=== PATIENT | female | born 1935 | race Caucasian/White ===

== ENCOUNTER → 2018-06-22 | Outpatient (CLI) | payer MEDICARE, BC ==
[~2018-06-22] MED LIST: CELEXA10 MG PO; HYZAAR; HYZAAR 50-12.1 UDTAB PO; ZOLOFT 50MG50 MG PO
== END ==
LOC: COL.RAD 11:23
DX: K76.89 Other specified diseases of liver (principal); M41.86 Other forms of scoliosis, lumbar region; M46.96 Unspecified inflammatory spondylopathy, lumbar region; M51.36 Other intervertebral disc degeneration, lumbar region; D25.9 Leiomyoma of uterus, unspecified; R31.9 Hematuria, unspecified
CPT/HCPCS: Q9967

== ENCOUNTER 2018-07-06 06:24 | Observation (INO) | payer MEDICARE, BC ==
[2018-07-06] VITALS (11 sets, daily range): BP systolic 111–133; BP diastolic 64–82; PULSE 58–80; TEMP 97.9–98.1
[~2018-07-06] VITALS: Ht 170.2 cm; Wt 67.9 kg
[2018-07-07 04:13] VITALS: BP 103/53; PULSE 62; TEMP 98.3
[2018-07-07 08:56] VITALS: BP 111/71; PULSE 62; TEMP 97.9
[2018-07-07] MEDS ORDERED: CIPRO 500MG TA500 MG PO (11:46)
[2018-07-07] MEDS ORDERED: PYRIDIUM 100MG100 MG (11:47)
[2018-07-07 11:54] VITALS: BP 113/63; PULSE 68; TEMP 97.4
== END 2018-07-07 13:00 | disposition home or self-care (01) ==
LOC: SDCO 06:24 → SURG 09:49 → SDCO 11:08 → SURG 11:09
DX: C67.4 Malignant neoplasm of posterior wall of bladder (principal); C67.2 Malignant neoplasm of lateral wall of bladder; J30.9 Allergic rhinitis, unspecified; E06.9 Thyroiditis, unspecified; F43.10 Post-traumatic stress disorder, unspecified; M19.90 Unspecified osteoarthritis, unspecified site; I10 Essential (primary) hypertension; E78.5 Hyperlipidemia, unspecified; F32.9 Major depressive disorder, single episode, unspecified; K21.9 Gastro-esophageal reflux disease without esophagitis; E03.9 Hypothyroidism, unspecified; Z85.828 Personal history of other malignant neoplasm of skin; Z85.820 Personal history of malignant melanoma of skin; Z88.0 Allergy status to penicillin; Z88.2 Allergy status to sulfonamides; Z87.891 Personal history of nicotine dependence; Z80.0 Family history of malignant neoplasm of digestive organs; Z80.8 Family history of malignant neoplasm of other organs or systems
CPT/HCPCS: G0378; G0379; J0690; J1100; J2270; J2405; J2704; J3010; J7120; Q9967

== ENCOUNTER → 2018-08-03 | Outpatient (CLI) | payer MEDICARE, BC ==
[~2018-08-03] MED LIST changes: +CIPRO 500MG TA500 MG PO; +PYRIDIUM 100MG100 MG
== END ==
LOC: COL.RAD 10:45
DX: C67.4 Malignant neoplasm of posterior wall of bladder (principal); K44.9 Diaphragmatic hernia without obstruction or gangrene; Z95.828 Presence of other vascular implants and grafts
CPT/HCPCS: Q9967

== ENCOUNTER 2018-10-01 09:40 | Outpatient (RCR) | payer MEDICARE, BC ==
[~2018-10-01] VITALS: Ht 170.2 cm; Wt 68.2 kg
[2018-10-01] VITALS (12 sets, daily range): BP systolic 112–131; BP diastolic 57–82; PULSE 62–76; TEMP 97.7–98
--- NOTE | 2018-10-01 16:50 | NUR ---
Blood transfusion complete. PAC flushed with Ns 10 ml and Heparin 300 units and de-assessed.
== END 2018-10-01 16:45 | disposition home or self-care (01) ==
LOC: EUO 09:40
DX: C67.4 Malignant neoplasm of posterior wall of bladder (principal)
CPT/HCPCS: J1644; J7050; P9016

== ENCOUNTER 2018-10-29 10:02 | Outpatient (RCR) | payer MEDICARE, BC ==
[2018-10-29] VITALS (9 sets, daily range): BP systolic 108–153; BP diastolic 71–99; PULSE 54–81; TEMP 98–98.1
== END 2018-10-29 15:52 | disposition home or self-care (01) ==
LOC: EUO 10:02
DX: C67.9 Malignant neoplasm of bladder, unspecified (principal)
CPT/HCPCS: J7050; P9016

== ENCOUNTER → 2019-02-22 | Outpatient (CLI) | payer MEDICARE, BC | LOC: COL.VAS 15:30 | DX: Z13.6 Encounter for screening for cardiovascular disorders (principal); M79.89 Other specified soft tissue disorders ==

== ENCOUNTER → 2019-03-26 | Outpatient (CLI) | payer MEDICARE, BC | LOC: COL.VAS 13:12 | DX: M79.89 Other specified soft tissue disorders (principal); M79.662 Pain in left lower leg ==

== ENCOUNTER → 2019-07-24 | Outpatient (CLI) | payer MEDICARE, BC | LOC: COL.RAD 09:46 | DX: Z01.812 Encounter for preprocedural laboratory examination (principal); C67.4 Malignant neoplasm of posterior wall of bladder; Z90.6 Acquired absence of other parts of urinary tract; Z90.710 Acquired absence of both cervix and uterus; Z93.6 Other artificial openings of urinary tract status; R60.0 Localized edema; K76.9 Liver disease, unspecified; M47.816 Spondylosis without myelopathy or radiculopathy, lumbar region; M41.86 Other forms of scoliosis, lumbar region | CPT/HCPCS: Q9967 ==

== ENCOUNTER 2019-08-07 10:15 | Outpatient (RCR) | payer MEDICARE, BC | END 2019-08-13 | disposition still patient (30) | LOC: MKS.ESL.PT | DX: I89.0 Lymphedema, not elsewhere classified (principal) ==

== ENCOUNTER → 2020-02-19 | Outpatient (CLI) | payer MEDICARE, BC | LOC: MC.RAD 13:58 | DX: Z12.31 Encounter for screening mammogram for malignant neoplasm of breast (principal) ==

== ENCOUNTER 2020-04-01 22:00 | Emergency (ER) | payer MEDICARE, BC ==
[~2020-04-01] VITALS: Ht 170.2 cm; Wt 68.2 kg
[2020-04-01 23:01] LABS: BASO # 0.1 (0.0-0.2); BASO % 0.6 % (0.0-2.0); EOS # 0.2 (0.0-0.7); EOS % 1.8 % (0-4.0); GRAN # 4.6 (1.4-6.5); GRAN % 54.6 % (42.2-75.2); HEMOGLOBIN 11.9 g/dl (12.5-16.0); LYMPH % 35.1 % (20.0-51.0); MEAN CELL VOLUME 96 fl (80.0-100.0); MEAN CORPUSCULAR HEMOGLOBIN 31 pg (27.0-31.0); MEAN CORPUSCULAR HGB CONC 32 g/dl (33.0-37.0); MEAN PLATELET VOLUME 10.3 fl (7.4-10.4); MONO # 0.7 (0.1-0.6); MONO % 7.7 % (1.7-9.3); PLATELET COUNT 180 K/mm3 (130-400); RED BLOOD COUNT 3.84 M/mm3 (4.10-5.30); REDCELL DISTRIBUTION WIDTH-CV 13.8 % (11.5-14.5)
[2020-04-01 23:04] LABS: HEMATOCRIT 36.7 % (37.0-47.0)
[2020-04-01 23:10] LABS: ALANINE AMINOTRANSFERASE 13 U/L (4-34); ALBUMIN 4.2 gm/dL (3.5-5.0); ALKALINE PHOSPHATASE 84 U/L (50-136); ANION GAP 7 mmol/L (7-16); AST,SGOT 28 U/L (15-37); BILIRUBIN,TOTAL 0.4 mg/dL (0.0-1.0); BLOOD UREA NITROGEN 35 mg/dL (7-17); CALCIUM 9.7 mg/dL (8.4-10.2); CARBON DIOXIDE 26 mmol/L (22-30); CHLORIDE 103 mmol/L (98-107); CREATININE, serum 1.42 (0.52-1.25); GLUCOSE 91 mg/dL (74-106); POTASSIUM 4.1 mmol/L (3.4-5.0); SODIUM 136 mmol/L (137-145); TOTAL PROTEIN 7.3 gm/dL (6.4-8.2)
[2020-04-01 23:12] LABS: C-REACTIVE PROTEIN 0.5 mg/dL (0.0-0.9)
[2020-04-01 23:25] LABS: TROPONIN-I < 0.012 ng/mL (0.000-0.035)
[2020-04-02 00:57] LABS: COLLECTION METHOD UROSTOMY
[2020-04-02 01:09] LABS: PH 8 (5-8); SQUAMOUS EPITHELIAL 0-2 /hpf; URINE APPEARANCE Cloudy; URINE BACTERIA None Seen /hpf; URINE BILIRUBIN Negative (NEGATIVE); URINE BLOOD 1+ (NEGATIVE); URINE COLOR Yellow; URINE GLUCOSE Negative (NEGATIVE); URINE KETONE Negative (NEGATIVE); URINE LEUKOCYTE ESTERASE 1+ (NEGATIVE); URINE NITRATE Negative (NEGATIVE); URINE PROTEIN(semi-quant) Negative (NEGATIVE); URINE RBC 0-2 /hpf; URINE UROBILINOGEN Negative (NEGATIVE)
[2020-04-02] MEDS ORDERED: OMNICEF 300MG300 MG PO (02:28)
[2020-04-02 02:37] VITALS: BP 142/82; PULSE 67; TEMP 98
== END 2020-04-02 02:37 | disposition home or self-care (01) ==
LOC: COL.ER 22:00
PROVIDERS: Emergency Medicine
DX: R06.02 Shortness of breath (principal); I10 Essential (primary) hypertension; F32.9 Major depressive disorder, single episode, unspecified; Z90.710 Acquired absence of both cervix and uterus
CPT/HCPCS: J7040; Q9967

== ENCOUNTER 2020-05-20 09:30 | Day surgery (SDC) | payer MEDICARE, BC ==
[~2020-05-20] VITALS: Ht 170.2 cm; Wt 70.9 kg
[2020-05-20] VITALS (9 sets, daily range): BP systolic 101–160; BP diastolic 60–90; PULSE 54–80
[~2020-05-20 09:30] MED LIST changes: +OMNICEF 300MG300 MG PO
[2020-05-20] MEDS ORDERED: TOPROL XL 50MG50 MG PO (11:18)
[2020-05-20] MEDS ORDERED: VITAMIN D31000 I1 PO (11:19)
[2020-05-20 11:24] LABS: HEMATOCRIT 37.6 % (37.0-47.0); HEMOGLOBIN 11.9 g/dl (12.5-16.0); MEAN CELL VOLUME 96 fl (80.0-100.0); MEAN CORPUSCULAR HEMOGLOBIN 30 pg (27.0-31.0); MEAN CORPUSCULAR HGB CONC 32 g/dl (33.0-37.0); MEAN PLATELET VOLUME 10.4 fl (7.4-10.4); PLATELET COUNT 158 K/mm3 (130-400); RED BLOOD COUNT 3.93 M/mm3 (4.10-5.30); REDCELL DISTRIBUTION WIDTH-CV 13.3 % (11.5-14.5)
[2020-05-20 11:34] LABS: PROTHROMBIN TIME 11.1 SECONDS (9.7-12.8)
[2020-05-20 11:48] LABS: CALCIUM 9.5 mg/dL (8.4-10.2); CREATININE, serum 1.42 (0.52-1.25)
--- NOTE | 2020-05-20 11:56 | NUR ---
SEE MERGE DOCUMENTATION FOR MEDICATION ADMINISTRATION TIMES AND INTRA/POST PROCEDURE SEDATION ASSESSMENTS. RIGHT HAND BARBEAU TEST POSITIVE.
--- NOTE | 2020-05-20 12:49 | NUR ---
PT IS BACK FROM ELECTRICAL TROU[facility]HO[facility], SHE IS AWAKE AND ALERT, IN GOOD SPIRITS. TR BAND IN PLACE, 15 CC AIR IN BAND. CMS INTACT DISTAL. LUNCH ORDERED, TELEMETRY IN PLACE, ST ON MONITOR 78.
--- NOTE | 2020-05-20 16:02 | NUR ---
Pt is ready for discharge. She has recovered well, TR band has been deflated and site is dressed with bandaid, 2x2 and coban. cms intact distal, there has been no bleeding or hematoma. Pt has verbalized understanding of dc/fu and rx instructions. iv was dc'd with cath intact. pt has been up and ambulatory with steady gait. pt to exit via wheelchair.
== END 2020-05-20 16:23 | disposition home or self-care (01) ==
LOC: COL.CAR
PROVIDERS: Internal Medicine Cardiovascular Disease
DX: R06.02 Shortness of breath (principal); R94.39 Abnormal result of other cardiovascular function study; I20.0 Unstable angina; Z85.51 Personal history of malignant neoplasm of bladder; Z92.3 Personal history of irradiation; I47.2 Ventricular tachycardia; I15.0 Renovascular hypertension; N18.3 Chronic kidney disease, stage 3 (moderate); Z88.0 Allergy status to penicillin; Z88.2 Allergy status to sulfonamides
CPT/HCPCS: J1644; J2250; J3010; Q9967

== ENCOUNTER → 2020-10-07 | Outpatient (CLI) | payer MEDICARE, BC ==
[2020-10-07] VITALS (19 sets, daily range): BP systolic 114–160; BP diastolic 62–93; PULSE 51–82; TEMP 97.2
[~2020-10-07] MED LIST changes: +TOPROL XL 50MG50 MG PO; +VITAMIN D31000 I1 PO
== END ==
LOC: COL.RAD 09:24
DX: C67.9 Malignant neoplasm of bladder, unspecified (principal); R91.1 Solitary pulmonary nodule

== ENCOUNTER 2021-12-12 17:59 | Inpatient (IN) | payer MEDICARE, BC ==
[~2021-12-12] VITALS: Ht 167.6 cm; Wt 67.1 kg
[2021-12-12 18:47] LABS: BASO % 0.3 % (0.0-2.0); EOS % 0.3 % (0.0-4.0); GRAN # 10.3 K/mm3 (1.4-6.5); GRAN % 88.5 % (42.2-75.2); HEMATOCRIT 37.5 % (37.0-47.0); HEMOGLOBIN 12.3 g/dl (12.5-16.0); LYMPH # 0.5 K/mm3 (1.2-3.4); LYMPH % 4.6 % (20.0-51.0); MEAN CELL VOLUME 92 fl (80.0-100.0); MEAN CORPUSCULAR HEMOGLOBIN 30 pg (27-31); MEAN CORPUSCULAR HGB CONC 33 g/dl (33.0-37.0); MEAN PLATELET VOLUME 10.4 fl (7.4-10.4); MONO # 0.7 K/mm3 (0.1-0.6); PLATELET COUNT 201 K/mm3 (130-400); RED BLOOD COUNT 4.09 M/mm3 (4.10-5.30); REDCELL DISTRIBUTION WIDTH-CV 13.7 % (11.5-14.5)
[2021-12-12 19:04] LABS: ALANINE AMINOTRANSFERASE 151 U/L (0-55); ALBUMIN 3.8 gm/dL (3.4-4.8); ALKALINE PHOSPHATASE 560 U/L (40-150); ANION GAP 15 mmol/L (7-16); AST,SGOT 173 U/L (5-34); BILIRUBIN,TOTAL 2.1 mg/dL (0.2-1.2); BLOOD UREA NITROGEN 23 mg/dL (10-20); CARBON DIOXIDE 23 mmol/L (23-31); CHLORIDE 102 mmol/L (98-107); CREATININE, serum 1.69 mg/dL (0.57-1.11); GLUCOSE 120 mg/dL (70-99); LIPASE 48 U/L (8-78); POTASSIUM 3.8 mmol/L (3.5-4.5); SODIUM 140 mmol/L (136-145); TOTAL PROTEIN 7.4 gm/dL (6.2-8.1)
[2021-12-12 19:10] LABS: TROPONIN-I < 0.010 ng/mL (0.00-0.033)
--- NOTE | 2021-12-12 23:00 | NUR ---
PT recently arrived to the floor from ED. She is alert and oriented with no pain complaints at this time. She also has no complaints of feeling nauseated. Pt requested something to drink. Gave her some water, but informed her that she cannot have anything to eat or drink after midnight. Pt does have dentures, gave her denture cup. Pt wishes to keep them in at this time. Pt does have urostomy with pouch. Hooked up dependent drainage bag. IV fluids started. Oriented pt to her room and educated her on the plan of care. Pt verbalized understanding. All questions answered. PT does have call light
[2021-12-12 23:01] VITALS: BP 122/88; PULSE 92; TEMP 99
[2021-12-12] MEDS ORDERED: ZOLOFT 25MG25 MG PO (23:09)
[2021-12-13 04:37] VITALS: BP 120/50; PULSE 92; TEMP 98.1
[2021-12-13 06:37] LABS: BASO % 0.3 % (0.0-2.0); EOS % 0.1 % (0.0-4.0); GRAN # 7.4 K/mm3 (1.4-6.5); HEMOGLOBIN 11.1 g/dl (12.5-16.0); LYMPH # 0.6 K/mm3 (1.2-3.4); LYMPH % 6.9 % (20.0-51.0); MEAN CELL VOLUME 92 fl (80.0-100.0); MEAN CORPUSCULAR HEMOGLOBIN 30 pg (27-31); MEAN CORPUSCULAR HGB CONC 33 g/dl (33.0-37.0); MEAN PLATELET VOLUME 10.8 fl (7.4-10.4); MONO % 11.2 % (1.7-9.3); PLATELET COUNT 180 K/mm3 (130-400); RED BLOOD COUNT 3.67 M/mm3 (4.10-5.30); REDCELL DISTRIBUTION WIDTH-CV 13.8 % (11.5-14.5)
[2021-12-13 06:45] LABS: HEMATOCRIT 33.6 % (37.0-47.0)
[2021-12-13 07:09] LABS: ALBUMIN 3.2 gm/dL (3.4-4.8); BILIRUBIN,TOTAL 2.5 mg/dL (0.2-1.2); CALCIUM 8.8 mg/dL (8.4-10.2); CREATININE, serum 1.41 mg/dL (0.57-1.11); POTASSIUM 3.8 mmol/L (3.5-4.5); TOTAL PROTEIN 6.5 gm/dL (6.2-8.1)
[2021-12-13 08:09] VITALS: BP 97/51; PULSE 78; TEMP 98.6
--- NOTE | 2021-12-13 09:31 | NUR ---
Scheduled medications held due to NPO status. Shift assessment performed. Patient A&O. BP soft, but stable. All other VSS. Patient denies any pain, discomfort, SOA, or further needs at this time. Urostomy in place. No complications noted. Call light in reach.
[2021-12-13 11:58] VITALS: BP 107/58; PULSE 71; TEMP 98.2
--- NOTE | 2021-12-13 13:35 | NUR ---
forest worker met with patient to discuss discharge plan. Patient currently lives at home alone in [address]. She reports to being fully independent with her ADL's and does not utilize any DME to assist with mobility. Patient has no home oxygen needs. PCP is Dr. Na Moreland and she utilizes [facility] for medications. Patient reports that she has three daughters but that her daughter Keisha ([phone]) is her primary agent. Patient is planning on returning home once medically ready for discharge. Discharge plan: Home
--- NOTE | 2021-12-13 15:27 | NUR ---
Received report that patient is receiving keytruda (pembrolizumab) every three weeks, last dose 11/25, verified with oncology office. Call made to pharmacist to confirm precautions: ongoing use of double chemo gloves when handling urine and feces. Discussed with primary nurse and sign placed outside door.
[2021-12-13 16:33] VITALS: BP 106/56; PULSE 64; TEMP 98.1
[2021-12-13] MEDS ORDERED: KEYTRUDA25 MG/ML IV (17:38)
--- NOTE | 2021-12-13 18:12 | NUR ---
Patient has had an ok day. Currently on RA. Denies any pain, discomfort, SOA, or further needs at this time. VSS. Patient A&O. Chemo precautions in place for urine and stool. Call light in reach. Patient to be NPO at midnight for procedure tomorrow. Family at the bedside.
--- NOTE | 2021-12-13 18:23 | NUR ---
Consent signed and on the chart.
[2021-12-13 19:51] VITALS: BP 141/71; PULSE 77; TEMP 98.4
--- NOTE | 2021-12-13 20:30 | NUR ---
Initial shift assessment done- denies pain, denies nausea/vomiting- taking clear liquids without problems- will be NPO after MN, IV fluids of NS at 75cc/hr. Will call if needs assistance. Alert/oriented,
[2021-12-14] VITALS (13 sets, daily range): BP systolic 119–144; BP diastolic 50–94; PULSE 60–97; TEMP 97.6–99.5
--- NOTE | 2021-12-14 05:34 | NUR ---
States the abd pain and nausea is coming back-- medicated with morphine and Zofran IV , has been resting most of the night-- NPO
[2021-12-14 06:32] LABS: BASO % 0.6 % (0.0-2.0); EOS # 0.1 K/mm3 (0.0-0.7); EOS % 1.6 % (0.0-4.0); GRAN % 72.1 % (42.2-75.2); HEMATOCRIT 31.5 % (37.0-47.0); HEMOGLOBIN 10.1 g/dl (12.5-16.0); LYMPH % 14.9 % (20.0-51.0); MEAN CELL VOLUME 96 fl (80.0-100.0); MEAN CORPUSCULAR HEMOGLOBIN 31 pg (27-31); MEAN CORPUSCULAR HGB CONC 32 g/dl (33.0-37.0); MEAN PLATELET VOLUME 10.9 fl (7.4-10.4); MONO # 0.7 K/mm3 (0.1-0.6); MONO % 10.7 % (1.7-9.3); PLATELET COUNT 174 K/mm3 (130-400); RED BLOOD COUNT 3.29 M/mm3 (4.10-5.30)
[2021-12-14 06:49] LABS: ALBUMIN 2.9 gm/dL (3.4-4.8); BILIRUBIN,TOTAL 1.4 mg/dL (0.2-1.2); CALCIUM 8.7 mg/dL (8.4-10.2); CREATININE, serum 1.25 mg/dL (0.57-1.11); MAGNESIUM 1.7 mg/dL (1.6-2.6); POTASSIUM 3.6 mmol/L (3.5-4.5); TOTAL PROTEIN 5.8 gm/dL (6.2-8.1)
--- NOTE | 2021-12-14 07:54 | NUR ---
Scheduled medications held due to scheduled procedure. Shift assessment performed. VSS. Patient A&O. Urostomy in place hooked up to Dependant drainage. No kinks in tubing noted. No complications noted. Fluids running as ordered. Patient denies any pain, discomfort, SOA, or further needs at this time. Call light in reach. Patient NPO for procedure. Mouth swabs provided.
--- NOTE | 2021-12-14 10:22 | NUR ---
Initial visit; Patient states she is doing well and thanked Coat Presser for looking in on her and keeping her in her prayers.
--- NOTE | 2021-12-14 12:49 | NUR ---
Patient back from ERCP. Dynamap in use for post op vitals. VSS. Patient A&O. Pain minimal. Denies the need for pain medication at this time. Call light in reach. Family at the bedside.
--- NOTE | 2021-12-14 15:29 | NUR ---
PATIENT IN SHOWER
--- NOTE | 2021-12-14 18:02 | NUR ---
Patient has had an ok day. ERCP completed with no complications. Post op vitals completed. Patient to be NPO after midnight for a lap choley in the AM. Consent is signed and on the chart. PRN morphine and zofran given once this shift for sharp abd pain. Patient is currently resting in bed. Respirations even and unlabored. Fluids running as ordered. VSS. Patient A&O. Family at the bedside. Patient denies any pain, discomfort, SOA, or further needs at this time. call light in reach.
--- NOTE | 2021-12-14 20:30 | NUR ---
Initial shift assessment done- states having some abd pain 5/10-would like Morphine--given,, IV fluids of NS at 75cc/hr, states feels nauseated when just takes sips of water- will be NPO after MN for OR in the AM- so states will just not drink anymore tonight- SCD,s on, Teresa ALEXIS called about ?Lovenox dose tonight,whether to give or not-- states she will put it on hold. OR at 0730 in the morning-consent signed
[2021-12-15] VITALS (12 sets, daily range): BP systolic 106–134; BP diastolic 54–73; PULSE 71–92; TEMP 97.5–98.4
[2021-12-15 06:50] LABS: ALBUMIN 2.7 gm/dL (3.4-4.8); BILIRUBIN,TOTAL 3.2 mg/dL (0.2-1.2); CALCIUM 8.5 mg/dL (8.4-10.2); CREATININE, serum 1.24 mg/dL (0.57-1.11); MAGNESIUM 1.7 mg/dL (1.6-2.6); POTASSIUM 3.6 mmol/L (3.5-4.5); TOTAL PROTEIN 5.5 gm/dL (6.2-8.1)
--- NOTE | 2021-12-15 06:55 | NUR ---
Ready for OR- new gown on- VSS, urostomy bag to DD- emptied of 800cc urine. Dentures out- mouth care done. Pre-op checklist done. Or staff here to take pt down to OR.
--- NOTE | 2021-12-15 07:06 | NUR ---
PATIENT TAKEN DOWN BY GARY MARK FOR LAP CHOLEY
--- NOTE | 2021-12-15 09:39 | NUR ---
Patient back to room 358 following Lap Choely. Shift assessment performed. Patient has 4 lap sites that are covered with bandaide. Dressing is clean, dry, and intact. Patient denies any pain, discomfort, or N/V at this time. Urostomy in place. DD in use. Dynamap in use for post-op vitals. VSS. Patient A&O. Patient denies any further needs at this time. Call light in reach. Family at the bedside.
--- NOTE | 2021-12-15 10:03 | NUR ---
NO S/S OF PAIN OR DISCOMFORT AT THIS TIME.
--- NOTE | 2021-12-15 13:57 | NUR ---
PATIENT DENIES ANY PAIN OR DISCOMFORT AT THIS TIME.
--- NOTE | 2021-12-15 14:54 | NUR ---
Sanitation Laborer met with patient to review discharge plan. Patient states she is going home tomorrow, whether the doctor gives their blessing or not. SW discussed Home Health services with patient who advised she was not interested as she did not want to be home bound. SW also offered outpatient PT and patient states she does not want to do that. Patient reports she does a [employer] program at home. SW presented and reviewed IM form with patient who verbalized understanding and provided signature. SW placed form in chart. Patient declined copy. Patient's daughter, Maryellen is at bedside and will take patient home tomorrow.
--- NOTE | 2021-12-15 19:57 | NUR ---
Patient has had an ok day. Diet advanced with no s/s of N/V. Patient states that she has little to no pain. Lap dressing are clean, dry, and intact. Patient denies any further needs at this time. VSS. Patient A&O. Call light in reach. Family at the bedside.
[2021-12-16 00:44] VITALS: BP 103/49; PULSE 70; TEMP 97.3
[2021-12-16 04:43] VITALS: BP 107/50; PULSE 55; TEMP 98.1
[2021-12-16 06:27] LABS: BASO % 0.1 % (0.0-2.0); GRAN # 9.5 K/mm3 (1.4-6.5); LYMPH # 0.8 K/mm3 (1.2-3.4); LYMPH % 6.9 % (20.0-51.0); MEAN CELL VOLUME 95 fl (80.0-100.0); MEAN CORPUSCULAR HGB CONC 32 g/dl (33.0-37.0); MONO # 0.7 K/mm3 (0.1-0.6); MONO % 6.4 % (1.7-9.3); PLATELET COUNT 202 K/mm3 (130-400); RED BLOOD COUNT 3.24 M/mm3 (4.10-5.30); REDCELL DISTRIBUTION WIDTH-CV 13.8 % (11.5-14.5)
[2021-12-16 06:29] LABS: HEMATOCRIT 30.8 % (37.0-47.0); HEMOGLOBIN 9.7 g/dl (12.5-16.0); MEAN CORPUSCULAR HEMOGLOBIN 30 pg (27-31)
[2021-12-16 06:49] LABS: ALBUMIN 2.8 gm/dL (3.4-4.8); CALCIUM 8.9 mg/dL (8.4-10.2); CREATININE, serum 1.34 mg/dL (0.57-1.11); MAGNESIUM 1.8 mg/dL (1.6-2.6); TOTAL PROTEIN 5.9 gm/dL (6.2-8.1)
[2021-12-16 07:54] VITALS: BP 128/69; PULSE 72; TEMP 97.9
[2021-12-16] MEDS ORDERED: ZOFRAN ODT4 MG PO (08:48)
--- NOTE | 2021-12-16 09:51 | NUR ---
PT ALERT AND ORIENTED UPON ENTRY. CALM AND COOPERATIVE. UP TO SHOWER WITH THE CONDENSER TUBE TENDER. DENIES PAIN AT ABDOMEN. NO PAIN REPORTED OVERNIGHT. AUDIBLE BOWEL SOUNDS. INCISION SITES ARE CLEAN AND DRY, COVERED WITH BANDAID. VITAL SIGNS STABLE. SHIFT ASSESSMENT PERFORMED. MEDICATIONS ADMINISTERED BY CONDENSER TUBE TENDER THIS MORNING. EDUCATION PROVIDED. PT HAS ADEQUATE APPETITE. WILL CONTINUE TO MONITOR. NO CONCERNS AT THIS TIME.
--- NOTE | 2021-12-16 10:28 | NUR ---
REMOVED PT PERIPHERAL IV FROM [facility]. TIP INTACT AND PRESSURE HELD ON SITE.
[2021-12-16 11:30] VITALS: BP 127/85; PULSE 87; TEMP 98
--- NOTE | 2021-12-16 11:45 | NUR ---
PERIPHERAL IV REMOVED BY RIM FIRE CHARGER OPERATOR. STATED TIP WAS INTACT. DISCHARGE PAPERWORK REVIEWED WITH PT AND PT'S DAUGHTER AT BEDSIDE. ANSWERED PT QUESTIONS. PT DRESSED SELF AND WAS WHEELED OUT BY THE PERIPHERAL EQUIPMENT OPERATOR.
--- NOTE | 2021-12-16 13:07 | NUR ---
Primary nurse was assisted with [phone] patient care by [employer] [employer] [employer] student Mireille Urrutia and [employer] [facility] instructor Tita Gonzalez MSN, RN
== END 2021-12-16 11:45 | disposition home or self-care (01) | DRG 418 ==
LOC: COL.ER 17:59 → MEDICAL 21:12
PROVIDERS: Emergency Medicine; Internal Medicine; Physician Assistant; Student in an Organized Health Care Education/Training Program; Surgery; ADMIT Internal Medicine
PROC: 0FC98ZZ Extirpation of Matter from Common Bile Duct, Via Natural or Artificial Opening Endoscopic (ICD-10-PCS; 2021-12-14)
PROC: 0FT44ZZ Resection of Gallbladder, Percutaneous Endoscopic Approach (ICD-10-PCS; principal; 2021-12-15 07:30)
DX: K80.43 Calculus of bile duct with acute cholecystitis with obstruction (principal); C78.00 Secondary malignant neoplasm of unspecified lung; N17.9 Acute kidney failure, unspecified; C67.9 Malignant neoplasm of bladder, unspecified; F32.A Depression, unspecified; I12.9 Hypertensive chronic kidney disease with stage 1 through stage 4 chronic kidney disease, or unspecified chronic kidney disease; N18.30 Chronic kidney disease, stage 3 unspecified; Z20.822 Contact with and (suspected) exposure to COVID-19; Z88.0 Allergy status to penicillin; Z88.2 Allergy status to sulfonamides
CPT/HCPCS: 99232-AI; 99233-AI; 99239; C1769; J0690; J0692; J1100; J1335; J1610; J1650; J2270; J2405; J2704; J2765; J3010; J7030; J7040; Q9967

== ENCOUNTER 2022-04-25 16:13 | Emergency (ER) | payer MEDICARE, BC ==
[~2022-04-25] VITALS: Ht 162.6 cm; Wt 68.2 kg
[~2022-04-25 16:13] MED LIST changes: +KEYTRUDA25 MG/ML IV; +ZOFRAN ODT4 MG PO; +ZOLOFT 25MG25 MG PO
[2022-04-25 16:19] VITALS: TEMP 98.4
[2022-04-25 16:41] LABS: BASO # 0.1 K/mm3 (0.0-0.2); BASO % 0.4 % (0.0-2.0); EOS % 0.2 % (0.0-4.0); GRAN # 11.6 K/mm3 (1.4-6.5); GRAN % 81.6 % (42.2-75.2); HEMOGLOBIN 11.2 g/dl (12.5-16.0); LYMPH # 1.4 K/mm3 (1.2-3.4); LYMPH % 9.8 % (20.0-51.0); MEAN CELL VOLUME 93 fl (80.0-100.0); MEAN CORPUSCULAR HEMOGLOBIN 30 pg (27-31); MEAN CORPUSCULAR HGB CONC 32 g/dl (33.0-37.0); MEAN PLATELET VOLUME 9.9 fl (7.4-10.4); MONO # 1.1 K/mm3 (0.1-0.6); MONO % 7.6 % (1.7-9.3); PLATELET COUNT 290 K/mm3 (130-400); RED BLOOD COUNT 3.77 M/mm3 (4.10-5.30)
[2022-04-25 16:43] LABS: HEMATOCRIT 34.9 % (37.0-47.0)
[2022-04-25 17:00] LABS: ALANINE AMINOTRANSFERASE 13 U/L (0-55); ALBUMIN 2.9 gm/dL (3.4-4.8); ALKALINE PHOSPHATASE 76 U/L (40-150); ANION GAP 14 mmol/L (7-16); AST,SGOT 11 U/L (5-34); BILIRUBIN,TOTAL 0.5 mg/dL (0.2-1.2); BLOOD UREA NITROGEN 20 mg/dL (10-20); CALCIUM 8.5 mg/dL (8.4-10.2); CARBON DIOXIDE 21 mmol/L (23-31); CHLORIDE 105 mmol/L (98-107); CREATININE, serum 1.29 mg/dL (0.57-1.11); GLUCOSE 94 mg/dL (70-99); POTASSIUM 3.6 mmol/L (3.5-4.5); SODIUM 140 mmol/L (136-145); TOTAL PROTEIN 5.6 gm/dL (6.2-8.1)
[2022-04-25 17:16] LABS: TROPONIN-I < 0.010 ng/mL (0.00-0.033)
[2022-04-25] MEDS ORDERED: REGLAN 10MG10 MG/TAB PO (19:13)
[2022-04-25 19:25] VITALS: BP 114/70; PULSE 81
== END 2022-04-25 19:25 | disposition home or self-care (01) ==
LOC: COL.ER 16:13
PROVIDERS: Emergency Medicine
DX: C34.90 Malignant neoplasm of unspecified part of unspecified bronchus or lung (principal); R11.2 Nausea with vomiting, unspecified; D72.829 Elevated white blood cell count, unspecified; Z20.822 Contact with and (suspected) exposure to COVID-19
CPT/HCPCS: J2765; J7120

== ENCOUNTER → 2022-10-14 | Outpatient (REF) | payer MEDICARE, BC ==
[~2022-10-14] MED LIST changes: +NEURONTIN100 MG/CAP PO; +REGLAN 10MG10 MG/TAB PO; +TYLENOL 325MG325 MG PO; +ULTRAM 50MG TAB50 MG PO
[2022-10-14 22:02] LABS: COLLECTION METHOD CATHETER
[2022-10-14 22:11] LABS: MUCOUS Present (NOT PRESENT); SQUAMOUS EPITHELIAL None Seen /hpf (0-10); URINE BACTERIA Many /hpf (NONE SEEN); URINE RBC 20-50 /hpf (0-2)
[2022-10-14 22:12] LABS: URINE APPEARANCE Cloudy (CLEAR/HAZY); URINE COLOR Yellow (YELLOW)
[2022-10-14 22:13] LABS: PH 5.5 (5.0-8.5); URINE BLOOD TRACE-INTACT (NEGATIVE); URINE GLUCOSE Negative (NEGATIVE); URINE KETONE Negative (NEGATIVE); URINE NITRATE Negative (NEGATIVE); URINE PROTEIN(semi-quant) 1+ (NEGATIVE); URINE UROBILINOGEN 0.2 E.U/dL (0.2-1.0)
== END ==
LOC: COL.LAB 08:00
PROVIDERS: Family Medicine
DX: N39.0 Urinary tract infection, site not specified (principal)

== ENCOUNTER → 2022-10-24 13:56 | Outpatient (RCR) | payer MEDICARE, BC | LOC: MKS.ESL.PT 08-25 14:30 | DX: I89.0 Lymphedema, not elsewhere classified (principal) ==